=== PATIENT | male | born 1955 | race African-American/Black ===

== ENCOUNTER → 2018-10-12 | Outpatient (CLI) | payer MEDICARE, OTHER ==
--- NOTE | 2018-10-13 11:22 | SLEEP ---
[address] [address] SLEEP STUDY REPORT Name: PADMAJA MAE Room: [facility]#: [id number] Admission: 10/12/18 Attend Phys: Bi Oconnor MD Discharge: Date of : 57 Report #: [id number] THIS REPORT FOR: //name// CC: Bi Sanders This study has been reviewed in its entirety by a board certified sleep specialist DATE OF SERVICE: 10/12/2018 ATTENDING PHYSICIAN: Dr. Bi Oconnor The patient is 62 years old who weighs 253 pounds with a BMI of 37.4. The patient's Forbes score was 13. The patient had a previously diagnosed sleep apnea and was unresponsive to CPAP at 16 cm water. As a result, he was referred back for BiPAP titration study. During the night study, the patient spent 461 minutes in bed and slept for 436 minutes with an excellent sleep efficiency of 94%. Sleep latency was 20 minutes with a REM latency of 134 minutes. Overall, sleep architecture showed normal stage 1 sleep, reduced stage 2 sleep, increased N3 sleep and normal REM sleep. EKG monitoring revealed an average heart rate of 82 beats per minute. No sustained arrhythmias observed. PLMs were not observed. The patient was started on BiPAP at a pressure of 14/10 and titrated up to 18/13. At the final pressure, the patient slept for 206 minutes including 36 minutes of REM sleep. The patient had a lateral sleep with REM. The patient's AHI was reduced to 0.9 per hour and oxygen saturation remained above 88%. IMPRESSION: 1. Sleep apnea diagnosed previously. 2. No clinically significant periodic limb movements. RECOMMENDATIONS: 1. BiPAP at a pressure of 18/13 completely eliminated the patient's sleep apnea and should be used on a nightly basis. 2. Follow up in 4-6 weeks to assess compliance with BiPAP and to document clinical improvement. 3. Weight loss is strongly advised. 4. [place] [address] SLEEP STUDY REPORT Name: PADMAJA MAE Room: [facility]#: [id number] Admission: 10/12/18 Attend Phys: Bi Oconnor MD Discharge: Date of : 57 Report #: [id number] 5. Caution regarding driving until symptoms of sleep apnea resolved with the use of BiPAP. <ELECTRONICALLY SIGNED> By: Cal Swartz MD 10/13/18 1122 0929 [id number] Swartz MD /nt
== END ==
LOC: M.SLEEPLAB 20:00
DX: G47.33 Obstructive sleep apnea (adult) (pediatric) (principal); E11.9 Type 2 diabetes mellitus without complications; I10 Essential (primary) hypertension; E78.00 Pure hypercholesterolemia, unspecified; M19.90 Unspecified osteoarthritis, unspecified site; J44.9 Chronic obstructive pulmonary disease, unspecified; G43.909 Migraine, unspecified, not intractable, without status migrainosus; F32.9 Major depressive disorder, single episode, unspecified; F41.9 Anxiety disorder, unspecified; F17.210 Nicotine dependence, cigarettes, uncomplicated; Z72.89 Other problems related to lifestyle; Z79.84 Long term (current) use of oral hypoglycemic drugs

== ENCOUNTER → 2019-07-11 | Outpatient (CLI) | payer MEDICARE, OTHER ==
--- NOTE | 2019-07-11 16:40 | 2DMMODE ---
[place] [address] 2 D/M-MODE ECHOCARDIOGRAM Name: CARMELITAPADMAJA Room: [facility]#: [id number] Admission: 07/11/19 Attend Phys: Physician not on s Discharge: Date of : 57 Date of Service: 07/11/19 [facility] Report #: [id number] THIS REPORT FOR: //name// APPROVED REPORT Study performed: 07/11/2019 13:50:29 EXAM: Comprehensive 2D, Doppler, and color-flow Echocardiogram Patient Location: Out-Patient BSA: 2.29 HR: 95 bpm BP: 160/90 mmHg Other Information Study Quality: Good Indications Hypertension/HDD 2D Dimensions IVSd: 15.50 (7-11mm) LVOT Diam: 20.25 (18-24mm) LVDd: 49.27 mm PWd: 12.05 (7-11mm) Ascending Ao: 26.63 (22-36mm) LVDs: 32.44 (25-40mm) Aortic Root: 27.37 mm Volumes Left Atrial Volume (Systole) LA ESV Index: 11.60 mL/m2 Aortic Valve AoV Peak Edmond.: 1.58 m/s AO Peak Gr.: 9.99 mmHg LVOT Max P.22 mmHg AO Mean Gr.: 5.55 mmHg LVOT Mean P.48 mmHg LVOT Max V: 1.14 m/s AO V2 VTI: 29.00 cm LVOT Mean V: 0.72 m/s BETTYE (VTI): 2.55 cm2 LVOT V1 VTI: 22.92 cm Mitral Valve E/A Ratio: 0.92 MV Decel. Time: 171.97 ms MV E Max Edmond.: 0.80 m/s MV PHT: 49.87 ms MVA (PHT): 4.41 [place]2 [place] [address] 2 D/M-MODE ECHOCARDIOGRAM Name: PADMAJA MAE Room: [facility]#: [id number] Admission: 07/11/19 Attend Phys: Physician not on s Discharge: Date of : 57 Date of Service: 07/11/19 [facility] Report #: [id number] TDI E/Lateral E': 8.89 E/Medial E': 11.43 Medial E' Edmond.: 0.07 m/s Lateral E' Edmond.: 0.09 m/s Pulmonary Valve PV Peak Edmond.: 1.16 m/s PV Peak Gr.: 5.34 mmHg Tricuspid Valve RAP Estimate: 5.00 mmHg TR Peak Gr.: 33.85 mmHg RVSP: 38.85 mmHg PA Pressure: 38.85 mmHg Left Ventricle The left ventricle is normal size. There is normal LV segmental wall motion. Mild to moderate concentric left ventricular hypertrophy. Left ventricular systolic function is normal. LVEF is 60-65%. Grade I - abnormal relaxation pattern. Right Ventricle The right ventricle is normal size. The right ventricular systolic function is normal. Atria The left atrium size is normal. The right atrium size is normal. Aortic Valve The aortic valve is normal in structure. No aortic regurgitation is present. There is no aortic valvular stenosis. Mitral Valve The mitral valve is normal in structure. Mild mitral regurgitation. No evidence of mitral valve stenosis. Tricuspid Valve The tricuspid valve is normal in structure. Mild tricuspid regurgitation. The RVSP is 40-45 mmHg. Pulmonic Valve The pulmonary valve is normal in structure. There is no pulmonic valvular regurgitation. Great Vessels The aortic root is normal in size. IVC [place] [address] 2 D/M-MODE ECHOCARDIOGRAM Name: PADMAJA MAE Room: [facility]#: [id number] Admission: 07/11/19 Attend Phys: Physician not on s Discharge: Date of : 57 Date of Service: 07/11/19 [facility] Report #: [id number] collapses >50% with inspiration. Pericardium There is no pericardial effusion. <Conclusion> The left ventricle is normal size. Mild to moderate concentric left ventricular hypertrophy. Left ventricular systolic function is normal. LVEF is 60-65%. Grade I - abnormal relaxation pattern. Mild mitral regurgitation. Mild tricuspid regurgitation. The RVSP is 40-45 mmHg. <ELECTRONICALLY SIGNED> By: Demario Paul MD, FACC 07/11/19 1640 1640 1640 Demario Paul MD, FACC /INF
== END ==
LOC: M.CRD 13:38
DX: I08.1 Rheumatic disorders of both mitral and tricuspid valves (principal); I11.9 Hypertensive heart disease without heart failure

== ENCOUNTER 2020-03-08 12:33 | Emergency (ER) | payer MEDICARE, OTHER ==
[~2020-03-08] VITALS: Ht 172.7 cm; Wt 114.8 kg
[2020-03-08] MEDS ORDERED: PLAVIX 75 MG TA75 MG PO (12:55)
[2020-03-08] MEDS ORDERED: [UNRECOGNIZED DRUG - REMARK] (12:56)
[2020-03-08 13:18] LABS: ABSOLUTE BASOPHILS 0.1 thou/uL (0.0-0.2); ABSOLUTE EOSINOPHILS 0.2 thou/uL (0.0-0.7); ABSOLUTE LYMPHOCYTES 2.3 thou/uL (0.8-5.3); ABSOLUTE MONOCYTES 0.4 thou/uL (0.0-1.2); ABSOLUTE NEUTROPHILS 5.3 thou/uL (1.6-8.1); BASOPHILS 1.3 %; EOSINOPHILS 2.2 %; HEMATOCRIT 39.8 % (42.0-52.0); HEMOGLOBIN 13.5 gm/dL (14.0-18.0); LYMPHOCYTES 27.5 %; MCH 28.7 pg (26.0-34.0); MCHC 33.9 g/dL (28.0-37.0); MCV 84.8 fL (80.0-100.0); MONOCYTES 5.3 %; MPV 6.3 fl. (7.2-11.1); NUCLEATED RBCS 0 /100WBC; PLATELET COUNT* 399 thou/uL (150-400); POLYS 63.7 %; RBC 4.69 mil/uL (4.50-6.00); RDW-CV 14.5 % (10.5-14.5); WBC 8.3 thou/uL (4.0-11.0)
[2020-03-08 13:34] LABS: CALCIUM 8.9 mg/dL (8.5-10.1); CREATININE 1.1 mg/dL (0.6-1.3); POTASSIUM 3.7 mmol/L (3.5-5.1)
[2020-03-08 13:38] LABS: ALBUMIN 3.9 g/dL (3.4-5.0); TOTAL BILIRUBIN 0.3 mg/dL (<0.1-1.0); TOTAL PROTEIN 7.4 g/dL (6.4-8.2)
--- NOTE | 2020-03-08 15:01 | EKG ---
[place] [address] ELECTROCARDIOGRAM REPORT Name: CARMELITAPADMAJA Room: [facility]#: [id number] Admission: 03/08/20 Attend Phys: Discharge: Date of : 57 Date of Service: 03/08/20 1259 Report #: [id number] THIS REPORT FOR: //name// [facility] ED Test Date: 2020-03-08 Test Time: 12:59:39 Pat Name: PADMAJA MAE Department: Room: Gender: Supervisor [employer]: [facility] : 1955 Requested By: Nakul Crandall Order Number: [id number] MD: Lopez Franco Measurements Intervals Carter Rate: 80 P: 23 ME: 164 QRS: 22 QRSD: 92 T: 20 QT: 386 QTc: 446 Interpretive Statements Sinus rhythm Probable left atrial enlargement Abnormal R-wave progression, early transition Minimal ST elevation, anterior leads probably normal variant No previous ECG available for comparison Electronically Signed On 03-08-2020 15:01:27 CDT by Lopez Franco [email or web address] <ELECTRONICALLY SIGNED> By: Lopez Franco MD, [facility] 03/08/20 1501 1259 1259 Lopez Franco MD, [facility] /EPI
[2020-03-08 15:36] VITALS: BP 131/70
== END 2020-03-08 15:37 | disposition home or self-care (01) ==
LOC: M.ERS 12:33
PROVIDERS: Physician Assistant
DX: R42 Dizziness and giddiness (principal); J44.9 Chronic obstructive pulmonary disease, unspecified; E11.9 Type 2 diabetes mellitus without complications; I10 Essential (primary) hypertension; E78.00 Pure hypercholesterolemia, unspecified; F17.210 Nicotine dependence, cigarettes, uncomplicated; Z88.6 Allergy status to analgesic agent

== ENCOUNTER → 2021-06-04 | Outpatient (CLI) | payer MEDICARE, OTHER ==
[~2021-06-04] MED LIST: PLAVIX 75 MG TA75 MG PO; [UNRECOGNIZED DRUG - REMARK]
== END ==
LOC: M.LAB 13:23
PROVIDERS: ATTEND Internal Medicine Gastroenterology
DX: Z01.812 Encounter for preprocedural laboratory examination (principal); Z20.822 Contact with and (suspected) exposure to COVID-19; E87.6 Hypokalemia